=== PATIENT | male | born 1930 | race Caucasian/White ===

== ENCOUNTER 2019-02-08 13:06 | Emergency (ER) | payer MEDICARE, MEDICAID ==
[~2019-02-08] VITALS: Ht 180.3 cm; Wt 63.5 kg
--- OUTSIDE RECORDS SUMMARY | 2019-02-08 13:14 | XMS REPORT | Continuity of Care Document ---
Author Organization Unknown Address Unknown Allergies There is no data. Medications There is no data. Problems There is no data. Procedures There is no data. Results There is no data. Encounters ACCT No. Visit Date/Time Discharge Status Pt. Type Provider Facility Loc./Unit Complaint [id number] 01/31/2019 16:40:00 01/31/2019 23:59:59 [facility]
[2019-02-08 13:18] VITALS: BP 116/85
[2019-02-08] MEDS ORDERED: LIPA1CAP2 (13:47)
[2019-02-08] MEDS ORDERED: MECL-106 (13:47)
[2019-02-08] MEDS ORDERED: FLUT16SP22 (13:48)
[2019-02-08] MEDS ORDERED: TAMSULOSIN (13:48)
[2019-02-08] MEDS ORDERED: ATOR20TA66 (13:48)
[2019-02-08] MEDS ORDERED: FINA5TAB6 (13:48)
--- NOTE | 2019-02-08 13:49 | ED EENT ---
History of Present Illness General Chief Complaint: Ear Problems Stated Complaint: JENNIFER EARS RINGING Nursing Triage Note: PT REPORTS DECRASED HEARING AND RINGING IN EARS BILATERALLY FOR OVER 2 WEEKS. HAS BEEN ON PREDNISONE FOR IT BUT DID NOT HELP HE REPORTS. 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 Patient states it is keeping him up at night. Patient has been seen by his PCP and prescribed prednisone with limited improvement. Pulse reports feeling of fluid behind both ears. He has been taking Advil cough and cold decongestant. He takes daily aspirin. No other acute symptoms or complaints. Patient has seen an ENT for his hearing and tinnitus years ago but has not been recently evaluated. Timing/Duration: gradual, other (long-standing months to years) Location: ear (R), ear (L) Prearrival Treatment: over the counter meds, prescription meds Associated Symptoms: change in hearing Allergies and Home Medications Patient Home Medication List Home Medication List Reviewed: Yes Review of Systems Review of Systems Constitutional: see HPI Eyes: See HPI Nose: see HPI Mouth: see HPI Throat: see HPI Cardiovascular: see HPI Gastrointestinal: see HPI Musculoskeletal: see HPI Skin: see HPI Neurological: See HPI Hematologic/Lymphatic: See HPI Past Vrsivnk-[id number]-Qwnkfk Hx Patient Social History Alcohol Use: Denies Use Recreational Drug Use: No Recent Foreign Travel: No Contact w/Someone Who Travel: No Recent Infectious Disease Expo: No Recent Hopitalizations: No Physical Abuse: No Sexual Abuse: No Mistreated: No Fear: No Seasonal Allergies Seasonal Allergies: Yes Past Medical History Surgeries: No Respiratory: No Cardiac: Yes High Cholesterol Neurological: No Genitourinary: Yes Prostate Problems Gastrointestinal: Yes Gastroesophageal Reflux, Pancreatitis Musculoskeletal: No Endocrine: No HEENT: Yes Tinnitis Hearing Impairment: Hard of Hearing Cancer: No Psychosocial: No Integumentary: No Blood Disorders: No Physical Exam Vital Signs Vital Signs - First Documented 02/08/19 13:18 Temp 98.0 Pulse 99 Resp 18 B/P (MAP) 116/85 (95) O2 Delivery Room Air Height, Weight, BMI Height: 5'11.00" Weight: 140lbs. oz. [id number]; BMI Method:Estimated General Appearance: WD/WN, no apparent distress Eyes: bilateral eye normal inspection, bilateral eye PERRL, bilateral eye EOMI Ears: bilateral ear TM bulging (Bilateral serous effusions), bilateral ear other ([place]) Nose: normal inspection Mouth/Throat: normal mouth inspection, pharynx normal Neck: non-tender, full range of motion, supple Cardiovascular: regular rate, rhythm Respiratory: chest non-tender, lungs clear Gastrointestinal: normal bowel sounds Neurologic/Psychiatric: painter hand II-XII nml as tested Progress/Results/Core Measures Results/Orders Vital Signs/I&O 02/08/19 13:18 Temp 98.0 Pulse 99 Resp 18 B/P (MAP) 116/85 (95) O2 Delivery Room Air Blood Pressure Mean: 95 Departure Impression Primary Impression: Tinnitus, bilateral Additional Impression: Hearing loss of both ears Disposition: 01 HOME, SELF-CARE Condition: Stable/Unchanged Departure-Patient Inst. 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 Discharge Instructions: Please take Tahmina OTC for fluid behind the ears. Contact Dr. Hardy's office later today to schedule appointment next week for evaluation of hearing loss and ringing in ears. All discharge instructions reviewed with patient and/or family. Voiced understanding. IVETTE GARCIA DO Feb 08, 2019 13:49
[2019-02-08] MEDS ORDERED: MECL-106 PO (14:01)
== END 2019-02-08 14:03 | disposition home or self-care (01) ==
LOC: EDUNIT# 13:06 → ER FS 13:07
DX: H93.13 Tinnitus, bilateral (principal); H91.93 Unspecified hearing loss, bilateral; E78.00 Pure hypercholesterolemia, unspecified; K21.9 Gastro-esophageal reflux disease without esophagitis; Z87.19 Personal history of other diseases of the digestive system
CPT/HCPCS: 99282